=== PATIENT | male | born 1935 | race Caucasian/White ===

== ENCOUNTER 2022-04-15 11:16 | Emergency (ER) | payer MEDICARE ==
[~2022-04-15] VITALS: Ht 177.8 cm; Wt 89.8 kg
[2022-04-15 12:10] LABS: HEMATOCRIT 36.3 % (42.0-52.0); MANUAL DIFF REFLEX YES; MEAN CELL VOLUME 102.8 fl (80.0-94.0); MEAN CORPUSCULAR HGB 31.7 pg (27.0-31.0); MEAN CORPUSCULAR HGB CONC 30.9 g/dl (33.0-37.0); MEAN PLATELET VOLUME 10.9 fl (9.6-12.3); NUCLEATED RED BLOOD CELL 0.2 % (0.0-0.0); PLATELET COUNT AUTOMATED 139 10*3/uL (130-400); RED BLOOD COUNT 3.53 10*6/uL (4.50-5.90); RED CELL DISTRI WIDTH 18.9 % (0-14.5); WHITE BLOOD COUNT 9.2 10*3/uL (4.8-10.8)
[2022-04-15 12:21] LABS: INTERNATIONAL NORM RATIO 2.3 (2.0-3.5)
[2022-04-15 12:30] LABS: CREATININE 2.3 mg/dL (0.70-1.30); POTASSIUM 5.3 mmol/L (3.4-5.1); TOTAL PROTEIN 6.3 gm/dL (6.0-8.0)
[2022-04-15 12:34] LABS: BASOPHILS 1 % (0-1); PLATELET SUFFICIENCY NORMAL (NORMAL); TOTAL CELLS COUNTED 100 #CELLS
== END 2022-04-15 19:43 | disposition short-term general hospital (02) ==
LOC: ED
PROVIDERS: Family Medicine
DX: I21.4 Non-ST elevation (NSTEMI) myocardial infarction (principal); Z91.040 Latex allergy status; Z88.1 Allergy status to other antibiotic agents; Z90.49 Acquired absence of other specified parts of digestive tract; Z98.890 Other specified postprocedural states